=== PATIENT | female | born 1945 | race Caucasian/White ===

== ENCOUNTER 2019-12-30 13:44 | Emergency (ER) | payer MEDICARE ==
[~2019-12-30] VITALS: Ht 160 cm; Wt 65.0 kg
[~2019-12-30 13:44] MED LIST: TIOT18CA7 IH; ZOF4T PO
[2019-12-30 14:14] LABS: BASOPHILS # (AUTO) 0.1 X10'3 (0-0.2); BASOPHILS % (AUTO) 1.2 % (0-1); EOSINOPHILS # (AUTO) 0.2 X10'3 (0-0.9); EOSINOPHILS % (AUTO) 2.1 % (0-6); HEMATOCRIT 43.4 % (35.0-45.0); HEMOGLOBIN 14.4 g/dl (12.0-16.0); LYMPHOCYTES % (AUTO) 28.6 % (21-51); MEAN CORPUSCULAR HEMOGLOBIN 28.7 PG (27.0-31.0); MEAN CORPUSCULAR HGB CONC 33.2 g/dL (33.0-36.5); MEAN CORPUSCULAR VOLUME 86.6 FL (78-98); MEAN PLATELET VOLUME 8.8 FL (7.4-10.4); MONOCYTES # (AUTO) 0.6 X10'3 (0-0.9); MONOCYTES % (AUTO) 8.3 % (2-12); NEUTROPHILS # (AUTO) 4.3 X10'3 (1.8-7.7); NEUTROPHILS % (AUTO) 59.8 % (42-75); PLATELET COUNT 210 X10'3 (140-440); RED BLOOD COUNT 5.01 X10'6 (4.20-5.60); WHITE BLOOD COUNT 7.1 X10'3 (4.5-11.0)
[2019-12-30] MEDS ORDERED: ALBU18HF2 PO (14:14)
[2019-12-30] MEDS ORDERED: AMLO5TAB16 PO (14:14)
[2019-12-30] MEDS ORDERED: ATOR20TA66 PO (14:14)
[2019-12-30] MEDS ORDERED: IPRA3AMP31 INH (14:14)
[2019-12-30] MEDS ORDERED: BUDE10.22 PO (14:14)
[2019-12-30] MEDS ORDERED: LISI10TA4 PO (14:14)
[2019-12-30 14:26] LABS: PARTIAL THROMBOPLASTIN TIME 27 SECONDS (22-32)
[2019-12-30 14:30] LABS: ALANINE AMINOTRANSFERASE 26 U/L (12-78); ALBUMIN/GLOBULIN RATIO 1.2 (1.1-1.5); ALKALINE PHOSPHATASE 87 IU/L (46-116); ANION GAP 6 (8-16); ASPARTATE AMINO TRANSFERASE 21 U/L (10-37); BILIRUBIN,TOTAL 0.3 MG/DL (0.1-1.0); BLOOD UREA NITROGEN 30 MG/DL (7-18); BUN/CREATININE RATIO 30.9 (6.6-38.0); CALCIUM 8.7 MG/DL (8.5-10.1); CHLORIDE 110 MMOL/L (99-107); CREATININE 0.97 MG/DL (0.40-0.90); GLUCOSE 109 MG/DL (70-104); POTASSIUM 4.3 MMOL/L (3.5-5.1); SODIUM 140 MMOL/L (135-145); TOTAL CARBON DIOXIDE 23.7 MMOL/L (24-32); TOTAL PROTEIN 7.4 G/DL (6.4-8.2); eGFR 56 ML/MIN
[2019-12-30 16:07] VITALS: BP 155/92
== END 2019-12-30 16:10 | disposition home or self-care (01) ==
LOC: ER 13:45
DX: R00.1 Bradycardia, unspecified (principal); I10 Essential (primary) hypertension; J44.9 Chronic obstructive pulmonary disease, unspecified; Z79.899 Other long term (current) drug therapy; Z88.7 Allergy status to serum and vaccine
CPT/HCPCS: 36415; 71045; 80053; 84439; 84443; 84480; 84484; 85025; 85610; 85730; 93005; 99285

== ENCOUNTER 2023-02-07 08:37 | Outpatient (CLI) | payer MEDICARE, MEDICAID ==
[~2023-02-07 08:37] MED LIST changes: +ALBU18HF2 PO; +AMLO5TAB16 PO; +ATOR20TA66 PO; +BUDE10.22 PO; +IPRA3AMP31 INH; +LISI10TA27 PO; -TIOT18CA7 IH; -ZOF4T PO
== END 2023-02-07 23:59 | disposition home or self-care (01) ==
LOC: VAS 08:37
PROVIDERS: ATTEND Physician Assistant
DX: M79.89 Other specified soft tissue disorders (principal)
CPT/HCPCS: 93971